=== PATIENT | male | born 1990 | race Hispanic/Latino ===

== ENCOUNTER 2016-05-13 12:24 | Emergency (ER) | payer OTHER ==
[2016-05-13] MEDS ORDERED: ZOFRAN IV ONE (13:17)
[2016-05-13] MEDS ORDERED: NACL 0.9% 1000 ML 1,000 ML IV ONE ×2 (13:17→15:22)
[2016-05-13 13:45] LABS: Basophils % (Auto) 0.6 % (0.0-1.8); Hematocrit 44.1 % (35.5-45.6); Hemoglobin 14.6 gm/dl (11.8-15.2); Mean Corpuscular HGB Conc 33 % (32-34); Mean Corpuscular Hemoglobin 32 pg (28-32); Mean Corpuscular Volume 96 fl (84-94); Platelet Count 209 K/mm3 (140-440); Red Blood Count 4.58 M/mm3 (3.65-5.03); Red Cell Distribution Width 13.5 % (13.2-15.2); White Blood Count 11.6 K/mm3 (4.5-11.0)
[2016-05-13 14:14] LABS: Alanine Aminotransferase 30 units/L (7-56); Albumin/Globulin Ratio 1.4 %; Alkaline Phosphatase 69 units/L (35-129); Anion Gap 12 mmol/L; BUN/Creatinine Ratio 6.66; Bilirubin,Total 0.3 mg/dL (0.1-1.2); Blood Urea Nitrogen 6 mg/dL (9-20); Calcium 9.2 mg/dL (8.4-10.2); Carbon Dioxide 31 mmol/L (22-30); Chloride 98.2 mmol/L (98-107); Glucose 102 mg/dL (75-100); Lipase 21 units/L (13-60); Potassium 4.3 mmol/L (3.6-5.0); Sodium 137 mmol/L (137-145); Total Protein 6.8 g/dL (6.3-8.2)
--- NOTE | 2016-05-13 14:21 | Emergency Department Report ---
ED General Adult HPI - General Chief complaint: Altered Mental Status Stated complaint: MH Time Seen by Provider: 05/13/16 13:08 Source: EMS Mode of arrival: Stretcher Limitations: No Limitations - History of Present Illness Initial comments: 25-year-old male presents to the emergency department via EMS from [facility] for evaluation of altered mental status. Patient was admitted to that facility on 05/11/2016 following a suicide attempt. 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 Patient states he began having nausea and vomiting after eating a crab cake yesterday. He reports persistent nausea and states he is aching all over. There are no other complaints. -: Gradual, days(s) (1) Radiation: non-radiation Severity scale (0 -10): 10 Quality: aching Consistency: constant Improves with: none Worsens with: none Associated Symptoms: nausea/vomiting Treatments Prior to Arrival: none - Related Data Home Medications Medication Instructions Recorded Confirmed Last Taken Ciprofloxacin HCl [Ciprofloxacin 500 mg PO BID 05/13/16 05/13/16 Unknown TAB] Divalproex [Ruiz HAYS] 500 mg PO BID 05/13/16 05/13/16 Unknown Gabapentin [Neurontin] 600 mg PO Q8H 05/13/16 05/13/16 Unknown LORazepam [Ativan] 1 mg PO TID PRN 05/13/16 05/13/16 Unknown Previous Rx's Medication Instructions Recorded Last Taken Type Ondansetron [Zofran Odt] 4 mg PO Q8HR PRN #30 tab.rapdis 05/13/16 Unknown Rx Allergies Allergy/AdvReac Type Severity Reaction Status Date / Time Penicillins Allergy Unknown Verified 05/13/16 12:59 ED Review of Systems ROS: Stated complaint: MH Other details as noted in HPI Comment: All other systems reviewed and negative Gastrointestinal: nausea, vomiting Musculoskeletal: myalgia ED Past Medical Hx - Past Medical History Previous Medical History?: Yes Hx Seizures: Yes Hx Psychiatric Treatment: Yes (schizophrenia) Additional medical history: alcohol/drug abuse - Surgical History Past Surgical History?: No - Family History Family history: no significant - Social History Smoking Status: Unknown if ever smoked Substance Use Type: Other - Medications Home Medications: Home Medications Medication Instructions Recorded Confirmed Last Taken Type Ciprofloxacin HCl [Ciprofloxacin 500 mg PO BID 05/13/16 05/13/16 Unknown History TAB] Divalproex Dr [DepaKOTE DR] 500 mg PO BID 05/13/16 05/13/16 Unknown History Gabapentin [Neurontin] 600 mg PO Q8H 05/13/16 05/13/16 Unknown History LORazepam [Ativan] 1 mg PO TID PRN 05/13/16 05/13/16 Unknown History Ondansetron [Zofran Odt] 4 mg PO Q8HR PRN #30 tab.rapdis 05/13/16 Unknown Rx ED Physical Exam - General Limitations: No Limitations General appearance: alert, in no apparent distress - Head Head exam: Present: atraumatic, normocephalic - Eye Eye exam: Present: normal appearance, PERRL, EOMI - ENT ENT exam: Present: normal exam, normal orophraynx, mucous membranes moist - Neck Neck exam: Present: normal inspection, full ROM. Absent: tenderness - Respiratory Respiratory exam: Present: normal lung sounds bilaterally. Absent: respiratory distress - Cardiovascular Cardiovascular Exam: Present: regular rate, normal rhythm, normal heart sounds - GI/Abdominal GI/Abdominal exam: Present: soft, normal bowel sounds. Absent: distended, tenderness - Extremities Exam Extremities exam: Present: normal inspection, full ROM. Absent: tenderness - Back Exam Back exam: Present: normal inspection, full ROM. Absent: tenderness - Neurological Exam Neurological exam: Present: alert, oriented X3. Absent: motor sensory deficit - Skin Skin exam: Present: warm, dry, intact ED Course Vital Signs 05/13/16 05/13/16 05/13/16 13:23 13:33 15:27 Temperature 98.2 F Pulse Rate 72 Respiratory 18 16 16 Rate Blood Pressure 100/54 [Right] O2 Sat by Pulse 99 95 Oximetry ED Medical Decision Making - Lab Data Result diagrams: 05/13/16 13:33 05/13/16 13:33 - EKG Data -: EKG Interpreted by [place] EKG shows normal: sinus rhythm, axis, intervals, QRS complexes, ST-T waves Rate: bradycardia - EKG Data When compared to previous EKG there are: previous EKG unavailable Interpretation: normal EKG - Medical Decision Making Lab results reviewed and discussed with the patient. Patient reports feeling better with IV fluids and Zofran. Patient will be discharged back to the [facility] at this time. - Differential Diagnosis gastroenteritis, food poisoning, dehydration Critical care attestation.: If time is entered above; I have spent that time in minutes in the direct care of this critically ill patient, excluding procedure time. ED Disposition Clinical Impression: Gastroenteritis due to food toxin Disposition: DC/TX PSY HOSP/PSY UNIT Is pt being admited?: No Condition: Stable Instructions: Acute Nausea and Vomiting (ED) Prescriptions: Ondansetron [Zofran Odt] 4 mg PO Q8HR PRN #30 tab.rapdis PRN Reason: Nausea And Vomiting Referrals: PRIMARY CARE, [Primary Care Provider] - 3-5 Days Time of Disposition: 17:11
[2016-05-13 14:47] LABS: Urine Drugs of Abuse Note Disclamer
[2016-05-13 14:54] LABS: Bilirubin,Urine NEG (Negative); Blood,Urine NEG (Negative); Ketones,Urine TR mg/dL (Negative); Leukocyte Esterase,Urine NEG (Negative); Mucus,Urine FEW /HPF; Nitrite,Urine NEG (Negative); Protein,Urine <15 mg/dL mg/dL (Negative); RBC,Urine < 1.0 /HPF (0.0-6.0); Urobilinogen,Urine < 2.0 mg/dL (<2.0); WBC,Urine < 1.0 /HPF (0.0-6.0)
[2016-05-13] MEDS ORDERED: TORADOL ONE (15:19)
[2016-05-13] MEDS ORDERED: TORADOL IV ONE (15:22)
[2016-05-13 17:29] VITALS: BP 108/58
== END 2016-05-13 20:50 ==
LOC: ED 12:24
DX: A05.9 Bacterial foodborne intoxication, unspecified (principal); F20.9 Schizophrenia, unspecified
CPT/HCPCS: 36415; 80053; 80164; 80307; 81001; 82140; 82962; 83690; 85025; 93005; 93010; 96361; 96374; 96375; 99285; J1885; J2405; J7030